=== PATIENT | male | born 1980 | race Caucasian/White ===

== ENCOUNTER 2017-12-29 15:24 | Emergency (ER) | payer SELFPAY ==
[~2017-12-29] VITALS: Ht 188 cm; Wt 119.7 kg
--- NOTE | 2017-12-29 15:47 | NUR ---
PT IS IN ROOM #2A. DR SUAREZ EVALUATED THE PT.
[2017-12-29] MEDS ORDERED: AZITHROMYCIN 250 MG TABLET PO ONE (16:00)
[2017-12-29] MEDS ORDERED: IV NORMAL SALINE 1000 ML BAG IV ONE (16:00)
[2017-12-29] MEDS ORDERED: CEFTRIAXONE 1 G in IV DEXTROSE 5% 50 ML IV ONE (16:00)
[2017-12-29] MEDS ORDERED: ONDANSETRON IV *ER 4 MG/2 ML VIAL IV ONE (16:00)
[2017-12-29] MEDS ORDERED: ONDANSETRON 4 MG/2 ML VIAL ONE (16:22)
[2017-12-29] MEDS ORDERED: AZITHROMYCIN 250 MG TABLET ONE (16:22)
[2017-12-29 16:29] LABS: BASOPHILS # (AUTO) 0.1 K/uL (0.0-8.0); BASOPHILS % (AUTO) 1.2 % (0.0-2.0); EOSINOPHILS # (AUTO) 0.1 K/uL (0.0-0.7); EOSINOPHILS % (AUTO) 1.3 % (0.0-7.0); HEMATOCRIT 48.3 % (36.7-47.1); HEMOGLOBIN 16.5 g/dL (12.5-16.3); LYMPHOCYTES # (AUTO) 2.7 K/uL (20.0-40.0); MEAN CORPUSCULAR HEMOGLOBIN 27.9 uug (23.8-33.4); MEAN CORPUSCULAR HGB CONC 34 g/dL (32.5-36.3); MEAN CORPUSCULAR VOLUME 81.6 fL (73.0-96.2); MONOCYTES % (AUTO) 10.1 % (0.0-11.0); NEUTROPHILS # (AUTO) 5.5 K/uL (1.8-8.9); NEUTROPHILS % (AUTO) 58.4 % (38.5-71.5); PLATELET COUNT (AUTO) 239 K/uL (152-348); RED BLOOD CELL COUNT(AUTO) 5.92 MIL/uL (4.06-5.63); WHITE BLOOD COUNT (AUTO) 9.4 K/uL (3.6-10.2)
[2017-12-29 16:44] LABS: *AMPHETAMINE, URINE NEGATIVE (NEGATIVE); *BARBITURATE, URINE NEGATIVE (NEGATIVE); *CANNABINOID, URINE NEGATIVE (NEGATIVE); *COCCAINE, URINE NEGATIVE (NEGATIVE); *OPIATE, URINE NEGATIVE (NEGATIVE); *PHENCYCLIDINE SCREEN,URINE NEGATIVE (NEGATIVE)
[2017-12-29 16:46] LABS: ETHANOL < 3 MG/DL (0-0)
[2017-12-29 16:50] LABS: BILIRUBIN,DIRECT 0.1 mg/dL (0.0-0.2); BILIRUBIN,TOTAL 0.5 mg/dL (0.2-1.0); POTASSIUM 3.5 mmol/L (3.5-5.1)
[2017-12-29 16:57] LABS: *BILIRUBIN,URIN NEGATIVE (NEGATIVE); *BLOOD, URINE 2+ (NEGATIVE); *CLARITY,URINE CLEAR (CLEAR); *COLOR,URINE YELLOW (YELLOW); *KETONES,URINE NEGATIVE (NEGATIVE); *PROTEIN,URINE NEGATIVE (NEGATIVE); *UROBILINOGEN,URINE 0.2 E.U./dl (NORMAL); LEUKOCYTE ESTERASE ,URINE NEGATIVE (NEGATIVE); NITRITE, URINE NEGATIVE (NEGATIVE); PH,URINE 6.5 (5.0-8.0); UGLUCOSE NEGATIVE (NEGATIVE)
[2017-12-29 16:59] LABS: BACTERIA,URINE NONE SEEN /HPF (NONE SEEN); SQUAMOUS EPITHELIAL CELL,UR NONE SEEN /HPF (NONE SEEN); WBC,URINE 0-3 /HPF (0-3)
[2017-12-29 17:00] LABS: ACETAMINOPHEN < 2.0 ug/mL (10-30)
--- NOTE | 2017-12-29 17:02 | NUR ---
Per Dr Amezcua order call placed to [facility] for pt's psych eval, ETA 1 hour.
--- NOTE | 2017-12-29 17:57 | NUR ---
DR SUAREZ RE-EVALUATED THE PT. DR SUAREZ DISCHARGED PT TO HOME. D/C INSTRUCTIONS GIVEN TO THE PT BY DR STEVE. PT WENT HOME WITH HIS FATHER. NO S/S OF ACUTE DISTRESS AT THE TIME OF DISCHARGE.
[2017-12-29 18:04] VITALS: BP 141/85
[2018-01-01 06:06] LABS: *GC NAA Negative (Negative); *TRIC.VAG. NAA Negative (Negative)
== END 2017-12-29 18:05 | disposition home or self-care (01) ==
LOC: ER 15:26
DX: N41.9 Inflammatory disease of prostate, unspecified (principal)
CPT/HCPCS: 36415; 76870; 80048; 80076; 80307; 81001; 83605; 83690; 85025; 86592; 87040 ×2; 87086; 87491; 87536; 87806; 96365; 99285; A4663; G0480 ×2; G0481; J0696; J2405; J7030; J7060; Q0144